=== PATIENT | female | born 1955 | race Caucasian/White ===

== ENCOUNTER 2017-09-22 11:55 | Outpatient (CLI) | payer BC ==
[2017-09-22] MEDS ORDERED: Gadobenate Dimeglumine 529 MG/1 ML (20ML VIAL) ONE (15:06)
--- NOTE | 2017-09-22 16:12 | MRI ---
MRI BRAIN WITH AND WITHOUT IV CONTRAST: Date: 09/22/17 HISTORY: Left-sided weakness and numbness. Paresthesia of skin. FINDINGS: No evidence of infarct, hemorrhage, mass, midline shift, or abnormal extra-axial fluid collections a re seen. The ventricular size is normal and the basilar cisterns are patent. There are a few foci of T2 prolongation in the periventricular and subcortical white matter consistent with mild chronic sm all vessel ischemic disease. No restricted diffusion is noted. No abnormal postcontrast enhancement is seen. No blood products are noted on the gradient echo sequences. There is minimal mucosal diseas e in the paranasal sinuses. IMPRESSION: 1. Mild chronic small vessel ischemic disease. 2. No evidence of acute intracranial process or mass. POS: [facility]
--- NOTE | 2017-09-23 12:21 | EEG ---
Referring Physician: Nate LOPEZ EEG # [id number] TEST TYPE: ROUTINE OUTPATIENT REPORT: AN EEG USING THE [employer]NATIONAL TEN-TWENTY SYSTEM OF ELECTRODE PLACEMENT WAS PERFORMED. The waking background is a well modulated 10 hertz alpha frequency. The patient entered some drowsiness, but no sleep was seen. Hyperventilation and photic stimulation were unremarkable. No epileptiform features were present. IMPRESSION: THIS IS A NORMAL AWAKE AND DROWSY EEG. Radiation Control Health Physicist: [employer] Nuclear Instructor: EEG.[email or web address]
== END 2017-09-22 11:56 | disposition home or self-care (01) ==
LOC: MRI 11:55
PROVIDERS: ATTEND Psychiatry & Neurology Neurology
DX: R20.2 Paresthesia of skin (principal); I67.82 Cerebral ischemia
CPT/HCPCS: 70553; 95816; A9579